=== PATIENT | female | born 1970 | race Caucasian/White ===

== ENCOUNTER → 2017-05-17 | Outpatient (CLI) | payer OTHER ==
[~2017-05-17] MED LIST: AMBIEN 5 MG TABL5 M1 PO; HYDROCODONE-AP1 EAC6 PO; KEFLEX500 M1 PO; XANAX 0.5 MG0.5 MG PO
== END ==
LOC: M.WC 09:16
DX: S97.81XD Crushing injury of right foot, subsequent encounter (principal); L97.511 Non-pressure chronic ulcer of other part of right foot limited to breakdown of skin; Z87.891 Personal history of nicotine dependence; X58.XXXA Exposure to other specified factors, initial encounter; Y93.89 Activity, other specified; Y92.89 Other specified places as the place of occurrence of the external cause; Y99.8 Other external cause status

== ENCOUNTER → 2017-05-24 | Outpatient (CLI) | payer OTHER | LOC: M.WC 00:53 | DX: L97.511 Non-pressure chronic ulcer of other part of right foot limited to breakdown of skin (principal); Z87.891 Personal history of nicotine dependence ==

== ENCOUNTER → 2017-05-31 | Outpatient (CLI) | payer OTHER | LOC: M.WC 01:51 | DX: L97.511 Non-pressure chronic ulcer of other part of right foot limited to breakdown of skin (principal); Z87.891 Personal history of nicotine dependence ==

== ENCOUNTER → 2017-06-07 | Outpatient (CLI) | payer OTHER | LOC: M.WC 01:55 | DX: L97.511 Non-pressure chronic ulcer of other part of right foot limited to breakdown of skin (principal); Z87.891 Personal history of nicotine dependence ==

== ENCOUNTER → 2017-06-14 | Outpatient (CLI) | payer OTHER | LOC: M.WC 00:08 | DX: L97.511 Non-pressure chronic ulcer of other part of right foot limited to breakdown of skin (principal); Z87.891 Personal history of nicotine dependence ==

== ENCOUNTER → 2017-06-21 | Outpatient (CLI) | payer OTHER | LOC: M.WC 04:52 | DX: L97.511 Non-pressure chronic ulcer of other part of right foot limited to breakdown of skin (principal); Z87.891 Personal history of nicotine dependence ==

== ENCOUNTER → 2017-06-25 | Outpatient (CLI) | payer OTHER | LOC: M.WC 01:34 | DX: L97.511 Non-pressure chronic ulcer of other part of right foot limited to breakdown of skin (principal); Z87.891 Personal history of nicotine dependence ==

== ENCOUNTER → 2017-06-28 | Outpatient (CLI) | payer OTHER | LOC: M.WC 00:49 | DX: L97.511 Non-pressure chronic ulcer of other part of right foot limited to breakdown of skin (principal); Z87.891 Personal history of nicotine dependence ==

== ENCOUNTER → 2017-07-05 | Outpatient (CLI) | payer OTHER | LOC: M.WC 02:21 | DX: S91.301D Unspecified open wound, right foot, subsequent encounter (principal); L97.511 Non-pressure chronic ulcer of other part of right foot limited to breakdown of skin; Z87.891 Personal history of nicotine dependence; X58.XXXD Exposure to other specified factors, subsequent encounter ==

== ENCOUNTER → 2017-07-12 | Day surgery (SDC) | payer OTHER ==
[2017-07-12 10:35] LABS: HEMATOCRIT 40.7 % (37.0-47.0); HEMOGLOBIN 13.7 gm/dL (12.0-15.0); MCH 28.5 pg (26.0-34.0); MCHC 33.6 g/dL (28.0-37.0); MCV 84.6 fL (80.0-100.0); MPV 7.6 fl. (7.2-11.1); RBC 4.81 mil/uL (4.20-5.00); WBC 9.4 thou/uL (4.0-11.0)
[2017-07-12 11:06] LABS: CALCIUM 9.6 mg/dL (8.5-10.1); CREATININE 0.7 mg/dL (0.6-1.3); POTASSIUM 3.9 mmol/L (3.5-5.1)
--- NOTE | 2017-07-12 11:28 | H ---
[address] [address] HISTORY AND PHYSICAL Name: MYRNA SOLANO Room: [facility]#: [id number] Admission: 07/12/17 Attend Phys: Jessica Way MD Discharge: Date of : 66 Report #: [id number] THIS REPORT FOR: //name// CC: Chaitanya Way ADMITTING DIAGNOSIS: Crush injury with skin loss, right foot, including dorsum and plantar surfaces of the right heel. HISTORY OF PRESENT ILLNESS: The patient is a 47-year-old white female who presented 1 month after a crush injury involving a forklift over the right foot, which resulted in a large area of skin loss and it is now being prepared for surgical debridement and wound care treatment. PAST MEDICAL HISTORY: Unremarkable. PAST SURGICAL HISTORY: Only includes a tubal ligation. MEDICATIONS: [place], Ambien and Xanax as needed. ALLERGIES: She has no other known drug allergies. SOCIAL HISTORY: She does not smoke or drink. REVIEW OF SYSTEMS: Otherwise unremarkable except for the distress of the injury. PHYSICAL EXAMINATION: GENERAL: She is a modestly obese, well-developed female. HEAD, EYES, EARS, NOSE AND THROAT: Unremarkable. NECK: Supple. LUNGS: Clear. HEART: Regular rate and rhythm without murmur. ABDOMEN: Benign. On her extremity of note, she has the right wound on the foot that on last measurements measured 13.5 cm in length, 15.5 cm in width and 0.5 cm in depth. There is dried blackened eschar across the base of the heel and bottom dorsum portion of the foot and the plantar surface wound and dorsum surface on the medial aspect of the right foot near the great toe. LABORATORY DATA: Unnecessary. ASSESSMENT AND PLAN: The plan is for surgical debridement of his blackened remaining eschar and placement of EpiFix and negative pressure wound therapy to the wound bed. I have outlined the surgical debridement of the eschar off the heel and forefoot, which is starting to loosen. I have outlined the repeated needs of repetitive treatments to close and heal [place] [address] HISTORY AND PHYSICAL Name: XIOMARAMYNRA L Room: [facility].#: [id number] Admission: 07/12/17 Attend Phys: Jessica Way MD Discharge: Date of : 66 Report #: [id number] the risks and benefits of the surgery and wishes to proceed with surgical treatment. <ELECTRONICALLY SIGNED> By: Jessica Way MD 07/12/[id number] MD /nt
--- NOTE | 2017-07-13 17:12 | S ---
[address] [address] SURGICAL PATH RPT PROCEDURE Name: MYRNA TORRES Room: [facility]#: [id number] Admission: 07/12/17 Date of : 66 Discharge: Report #: [id number] Path Case #: [id number] PATHOLOGY REPORT COLLECTION DATE: 07/12/2017 RECEIVED DATE: 07/12/2017 SUBMITTING PHYS: Dr. Jessica Way OTHER PHYS: Dr. Chaitanya Winters SPECIMEN(S) RECEIVED: A.Right heel tissue * * * * * * * * * * * * FINAL DIAGNOSIS: Right heel: - Benign skin and fibrofatty tissue with prominent necrosis and acute and chronic inflammation. (WEST:mgr; 07/13/2017) PATHOLOGIST: Luis Eduardo Brown M.D. REPORT ELECTRONICALLY SIGNED BY: Luis Eduardo Brown M.D. DATE/TIME: 07/13/2017 17:11 * * * * * * * * * * * * GROSS PATHOLOGY: The specimen is received in formalin, labeled "Myrna Torres right heel," and consists of 2 segments of dark brown necrotic skin measuring 8.5 x 2.9 x 0.5 cm and 8.0 x 3.9 x 0.5 cm. Director Of Corporate Marketing sections are submitted in cassette A1. (SDY; 07/12/2017) CLINICAL HISTORY: Crushed right foot Crushing injury right foot, non-pressure chronic ulcer INITIAL CPT CODE(S): A; 25516 Professional services performed by [facility] at [facility], [address] [place] [address]. Technical services performed by [facility] at [address] [place] [address], [address], [place] [address]. [facility] [address] [address] SURGICAL PATH RPT PROCEDURE Name: MYRNA TORRES Room: [facility] Avi#: [id number] Admission: 07/12/17 Date of : 66 Discharge: Report #: [id number] Path Case #: [id number] [place] [address] PHONE: [phone] DIRECTOR: Rob Rodrigez M.D. * * * END OF REPORT * * *
--- NOTE | 2017-07-26 09:08 | OP ---
[address] [address] OPERATIVE REPORT Name: MYRNA SOLANO Carolyn Room: [facility]#: [id number] Admission: 07/12/17 Attend Phys: Jessica Way MD Discharge: Date of : 66 Report #: [id number] THIS REPORT FOR: //name// CC: Chaitanya Way DATE OF SERVICE: 07/12/2017 PREOPERATIVE DIAGNOSIS: Necrotic skin loss over the plantar and posterior heel and dorsum of the foot. The heel wound measured 15.5 x 13 cm and the forefoot wound measured 1 x 0.4 cm. POSTOPERATIVE DIAGNOSIS: Necrotic skin loss over the plantar and posterior heel and dorsum of the foot. The heel wound measured 15.5 x 13 cm and the forefoot wound measured 1 x 0.4 cm. OPERATIVE PROCEDURE: Excisional debridement of a 15.5 x 13 cm right heel skin and subcutaneous tissue and 1 x 0.4 cm forefoot wound, application of a 16 x 6 cm AmnioFix with security with ld and then placement of Adaptic and a 20 x 25 negative pressure wound therapy device, LAYNE. ANESTHESIA: General endotracheal. DESCRIPTION OF PROCEDURE: After the patient was placed under general endotracheal anesthesia and placed in a left lateral decubitus position, the right foot, heel, up to the knee was carefully prepped and sterilely draped in a sterile fashion. A timeout taken, antibiotics administered. I began by sharply excising off the forefoot wound necrotic skin and a 1 x 0.4 cm was left exposed and was debrided back sharply with a #15 scalpel blade. Then, the entire heel, the 15.5 x 13 was sharply debrided off from the back of the heel towards the lateral part of the heel to the medial part of the heel in pieces and the entire necrotic skin bed was completely excised. After controlling bleeding points on the subcutaneous tissue with cautery and sharply debriding the subcutaneous fat back to healthy bleeding tissues in the entire area, it was rinsed and dried. I then took a 16 x 6 cm AmnioFix and cut it to allow coverage of the entire area of exposed wound including the forefoot. I then covered both the heel area with Adaptic and secured first the Amniofix with ld and then the Adaptic with Steri-Strips and then I placed a Mepilex bandage over the forefoot and then placed the 20 x 25 LAYNE covering the entire wound bed of the heel and forefoot and secured it with the surrounding tapes and put it in negative pressure of 80 mmHg with good seal, and placed an Ángel bandage and that ended the operative procedure. Estimated blood loss of 5 mL. Specimen [place] [address] OPERATIVE REPORT Name: MYRNA SOLANO Room: [facility] Avi#: [id number] Admission: 07/12/17 Attend Phys: Jessica Way MD Discharge: Date of : 66 Report #: [id number] for culture. The patient was extubated, returned to recovery in satisfactory condition. <ELECTRONICALLY SIGNED> By: Jessica Way MD 07/26/[id number] MD /nt
== END | disposition home or self-care (01) ==
LOC: M.SUR 08:43
PROVIDERS: Surgery
DX: S91.301A Unspecified open wound, right foot, initial encounter (principal); I96 Gangrene, not elsewhere classified; L97.511 Non-pressure chronic ulcer of other part of right foot limited to breakdown of skin; Z98.890 Other specified postprocedural states; X58.XXXA Exposure to other specified factors, initial encounter; Y93.89 Activity, other specified; Y92.89 Other specified places as the place of occurrence of the external cause; Y99.8 Other external cause status

== ENCOUNTER → 2017-07-19 | Outpatient (CLI) | payer OTHER | LOC: M.WC 02:06 | DX: S91.301D Unspecified open wound, right foot, subsequent encounter (principal); Z87.891 Personal history of nicotine dependence; X58.XXXD Exposure to other specified factors, subsequent encounter ==

== ENCOUNTER → 2017-07-22 | Outpatient (CLI) | payer OTHER | LOC: M.WC 01:32 | DX: S91.301D Unspecified open wound, right foot, subsequent encounter (principal); Z87.891 Personal history of nicotine dependence; X58.XXXD Exposure to other specified factors, subsequent encounter ==

== ENCOUNTER → 2017-07-26 | Outpatient (CLI) | payer OTHER | LOC: M.WC 01:37 | DX: L97.511 Non-pressure chronic ulcer of other part of right foot limited to breakdown of skin (principal); Z87.891 Personal history of nicotine dependence ==

== ENCOUNTER → 2017-07-29 | Outpatient (CLI) | payer OTHER | LOC: M.WC 03:29 | DX: S97.81XD Crushing injury of right foot, subsequent encounter (principal); L97.511 Non-pressure chronic ulcer of other part of right foot limited to breakdown of skin; Z87.891 Personal history of nicotine dependence; X58.XXXD Exposure to other specified factors, subsequent encounter ==

== ENCOUNTER → 2017-08-02 | Outpatient (CLI) | payer OTHER | LOC: M.WC 01:46 | DX: L97.511 Non-pressure chronic ulcer of other part of right foot limited to breakdown of skin (principal); Z87.891 Personal history of nicotine dependence ==

== ENCOUNTER → 2017-08-05 | Outpatient (CLI) | payer OTHER | LOC: M.WC 01:51 | DX: S91.301D Unspecified open wound, right foot, subsequent encounter (principal); L97.511 Non-pressure chronic ulcer of other part of right foot limited to breakdown of skin; Z87.891 Personal history of nicotine dependence; X58.XXXD Exposure to other specified factors, subsequent encounter ==

== ENCOUNTER → 2017-08-09 | Outpatient (CLI) | payer OTHER | LOC: M.WC 00:05 | DX: L97.511 Non-pressure chronic ulcer of other part of right foot limited to breakdown of skin (principal); Z87.891 Personal history of nicotine dependence ==

== ENCOUNTER → 2017-08-16 | Outpatient (CLI) | payer OTHER | LOC: M.WC 00:03 | DX: L97.511 Non-pressure chronic ulcer of other part of right foot limited to breakdown of skin (principal); Z87.891 Personal history of nicotine dependence ==

== ENCOUNTER → 2017-08-24 | Outpatient (CLI) | payer OTHER | LOC: M.WC 08-23 09:00 | DX: L97.511 Non-pressure chronic ulcer of other part of right foot limited to breakdown of skin (principal); Z87.891 Personal history of nicotine dependence ==

== ENCOUNTER → 2017-08-30 | Outpatient (CLI) | payer OTHER | LOC: M.WC 01:37 | DX: S91.301D Unspecified open wound, right foot, subsequent encounter (principal); Z87.891 Personal history of nicotine dependence; X58.XXXD Exposure to other specified factors, subsequent encounter ==

== ENCOUNTER → 2017-09-03 | Outpatient (CLI) | payer OTHER | LOC: M.WC 03:51 | DX: L97.511 Non-pressure chronic ulcer of other part of right foot limited to breakdown of skin (principal); Z87.891 Personal history of nicotine dependence ==

== ENCOUNTER → 2017-09-10 | Outpatient (CLI) | payer OTHER | LOC: M.WC 02:42 | DX: L97.511 Non-pressure chronic ulcer of other part of right foot limited to breakdown of skin (principal); Z87.891 Personal history of nicotine dependence ==

== ENCOUNTER → 2017-09-13 | Outpatient (CLI) | payer OTHER | LOC: M.WC 00:47 | DX: L97.511 Non-pressure chronic ulcer of other part of right foot limited to breakdown of skin (principal); Z87.891 Personal history of nicotine dependence ==

== ENCOUNTER → 2017-09-20 | Outpatient (CLI) | payer OTHER | LOC: M.WC 06:30 | DX: L97.511 Non-pressure chronic ulcer of other part of right foot limited to breakdown of skin (principal); Z87.891 Personal history of nicotine dependence ==

== ENCOUNTER → 2017-09-27 | Outpatient (CLI) | payer OTHER | LOC: M.WC 01:22 | DX: L97.511 Non-pressure chronic ulcer of other part of right foot limited to breakdown of skin (principal); Z87.891 Personal history of nicotine dependence ==

== ENCOUNTER → 2017-10-04 | Outpatient (CLI) | payer OTHER | LOC: M.WC 00:54 | DX: S91.301D Unspecified open wound, right foot, subsequent encounter (principal); Z87.891 Personal history of nicotine dependence; X58.XXXD Exposure to other specified factors, subsequent encounter ==

== ENCOUNTER → 2017-10-11 | Outpatient (CLI) | payer OTHER | LOC: M.WC 00:10 | DX: L97.511 Non-pressure chronic ulcer of other part of right foot limited to breakdown of skin (principal); Z87.891 Personal history of nicotine dependence ==

== ENCOUNTER → 2017-10-18 | Outpatient (CLI) | payer OTHER | LOC: M.WC 00:55 | DX: L97.511 Non-pressure chronic ulcer of other part of right foot limited to breakdown of skin (principal); Z87.891 Personal history of nicotine dependence ==

== ENCOUNTER → 2017-10-25 | Outpatient (CLI) | payer OTHER | LOC: M.WC 01:06 | DX: L97.512 Non-pressure chronic ulcer of other part of right foot with fat layer exposed (principal); Z87.891 Personal history of nicotine dependence ==

== ENCOUNTER → 2017-11-01 | Outpatient (CLI) | payer OTHER | LOC: M.WC 00:14 | DX: L97.511 Non-pressure chronic ulcer of other part of right foot limited to breakdown of skin (principal); S97.81XD Crushing injury of right foot, subsequent encounter; Z87.891 Personal history of nicotine dependence; X58.XXXD Exposure to other specified factors, subsequent encounter ==

== ENCOUNTER → 2017-11-08 | Outpatient (CLI) | payer OTHER | LOC: M.WC 01:16 | DX: L97.511 Non-pressure chronic ulcer of other part of right foot limited to breakdown of skin (principal); S97.81XD Crushing injury of right foot, subsequent encounter; Z87.891 Personal history of nicotine dependence; X58.XXXD Exposure to other specified factors, subsequent encounter ==

== ENCOUNTER → 2017-11-15 | Outpatient (CLI) | payer OTHER | LOC: M.WC 00:54 | DX: L97.511 Non-pressure chronic ulcer of other part of right foot limited to breakdown of skin (principal); S97.81XD Crushing injury of right foot, subsequent encounter; Z87.891 Personal history of nicotine dependence; X58.XXXD Exposure to other specified factors, subsequent encounter ==

== ENCOUNTER → 2017-11-22 | Outpatient (CLI) | payer OTHER | LOC: M.WC 01:01 | DX: L97.511 Non-pressure chronic ulcer of other part of right foot limited to breakdown of skin (principal); Z87.891 Personal history of nicotine dependence ==

== ENCOUNTER → 2017-11-29 | Outpatient (CLI) | payer OTHER | LOC: M.WC 06:18 | DX: L97.518 Non-pressure chronic ulcer of other part of right foot with other specified severity (principal); Z87.891 Personal history of nicotine dependence ==

== ENCOUNTER → 2018-04-18 | Outpatient (CLI) | payer OTHER | LOC: M.WC 00:57 | DX: L97.511 Non-pressure chronic ulcer of other part of right foot limited to breakdown of skin (principal); F41.9 Anxiety disorder, unspecified; Z87.891 Personal history of nicotine dependence ==